=== PATIENT | male | born 1955 | race African-American/Black ===

== ENCOUNTER → 2019-10-10 09:50 | Outpatient (CLI) | payer BC, SELFPAY ==
--- NOTE | ~2019-10-10 | US_ITS ---
EXAMINATION: US soft tissue groin LT EXAM DATE: 10/10/2019 10:10 INDICATION: Left groin bulge. TECHNIQUE: Multiple grayscale and Doppler images of the left groin, inguinal region were obtained (by a technologist who performed the scan) and subsequently reviewed. There is no prior study for brittani ortiz. FINDINGS: Scanning in the area of concern demonstrates probable large inguinal hernia with another more focal t ubular structure demonstrating peristalsis, a loop of bowel. IMPRESSION: 1. Large right inguinal hernia containing fat, bowel. Reviewed, dictated and finalized at location B.
== END ==
PROVIDERS: PCP Physician Assistant; Visit Provider Physician Assistant
DX: R19.09 Other intra-abdominal and pelvic swelling, mass and lump (principal); K40.90 Unilateral inguinal hernia, without obstruction or gangrene, not specified as recurrent
CPT/HCPCS: 76882

== ENCOUNTER → 2020-04-12 09:35 | Outpatient (CLI) | payer OTHER, SELFPAY ==
--- NOTE | ~2020-04-12 | US_ITS ---
EXAMINATION: US scrotum doppler EXAM DATE: 04/12/2020 10:45 INDICATION: Left-sided scrotal mass. Left testicular pain. Bilateral groin pain. Left inguinal hernia repair. TECHNIQUE: Multiple grayscale and Doppler images of the testicles and scrotum were obtained bilateral ly. There is no prior study for comparison. FINDINGS: Right testicle measures 2.7 x 3.1 x 2.5 cm and is morphologically normal. Low resistance Doppler edgard w confirmed. The epididymis is unremarkable. There is small hydrocele, fluid surrounding the testicle . Scanning in images labeled right groin area of pain, lateral to the right testicle demonstrates ov al anechoic fluid collection measuring 8.1 x 4.0 x 8.4 cm. Left testicle measures 3.9 x 1.9 x 2.1 cm and is morphologically normal. Low resistance Doppler flow confirmed. The epididymis is unremarkable. Small to moderate-sized left hydrocele and varicocele. IMPRESSION: 1. Sonographically normal testicles. 2. Small to moderate bilateral hydroceles. 3. Small to moderate left varicocele. 4. Large nonspecific contained fluid in right groin at area of pain. Reviewed, dictated and finalized at location B. [employer]
== END ==
PROVIDERS: PCP Physician Assistant; Visit Provider Physician Assistant
DX: N43.3 Hydrocele, unspecified (principal); I86.1 Scrotal varices
CPT/HCPCS: 76870; 93976

== ENCOUNTER 2020-07-19 14:01 | Outpatient (CLI) | payer OTHER, MEDICARE, SELFPAY | END 2020-07-19 14:02 | disposition home or self-care (01) | LOC: ANHCOVIDVC 14:01 | PROVIDERS: PCP Internal Medicine | DX: Z23 Encounter for immunization (principal) | CPT/HCPCS: 0001A; 91300 ==

== ENCOUNTER 2020-08-09 14:04 | Outpatient (CLI) | payer OTHER, MEDICARE, SELFPAY | END 2020-08-09 14:05 | disposition home or self-care (01) | LOC: ANHCOVIDVC 14:04 | PROVIDERS: PCP Internal Medicine | DX: Z23 Encounter for immunization (principal) | CPT/HCPCS: 0002A; 91300 ==

== ENCOUNTER → 2021-11-11 12:55 | Outpatient (CLI) | payer OTHER, SELFPAY ==
--- NOTE | ~2021-11-11 | MR_ITS ---
EXAMINATION: MR brain/brain stem wo/w con DATE: 11/11/2021 14:07 INDICATION: Dizziness TECHNIQUE: Magnetic resonance imaging (MRI) of the brain and brainstem was performed without and with 18 cc MultiHance intravenous contrast. Sequences included sagittal and axial T1-weighted SE, axial d iffusion-weighted FS SE, axial T2*-weighted GRE, axial T2-weighted FLAIR Propeller, and axial T2-weig hted Propeller. Apparent diffusion coefficient (ADC) maps were created. COMPARISON: None. FINDINGS: Mild generalized atrophy. There are scattered mild periventricular and subcortical white ma tter changes, most likely related to small vessel ischemic disease (microangiopathy). No evidence for acute infarction or hemorrhage. No abnormal contrast enhancement. Structures of the posterior fossa including 7/8th cranial nerve complexes are within normal limits. Orbits are symmetric without discon jugate gaze. Minimal mucosal thickening right frontal sinus. IMPRESSION: 1. No acute intracranial abnormality. 2: Chronic age-related findings. Reviewed, dictated and finalized at location A.
[2021-11-11 13:43] LABS: Estimated Glomerular Filt Rate > 60
== END ==
PROVIDERS: Visit Provider Physician Assistant
DX: R42 Dizziness and giddiness (principal)
CPT/HCPCS: 70553; A9577

== ENCOUNTER → 2022-02-13 15:31 | Outpatient (CLI) | payer OTHER, SELFPAY ==
--- NOTE | ~2022-02-13 | XR_ITS ---
XR chest 2V DATE: 02/13/2022 15:54 INDICATION: Productive cough. Smoker. TECHNIQUE: 2 views COMPARISON: 06/17/2018 2 view chest FINDINGS: Heart size is within normal limits. No hilar or mediastinal enlargement. No pulmonary infil trate or consolidation, pleural effusion or pulmonary vascular congestion or pneumothorax. IMPRESSION: No active cardiopulmonary disease Reviewed, dictated and finalized at location A.
== END ==
PROVIDERS: PCP Physician Assistant; Visit Provider Physician Assistant
DX: R05.9 Cough, unspecified (principal)
CPT/HCPCS: 71046

== ENCOUNTER 2022-09-06 14:30 | Outpatient (RCR) | payer OTHER, SELFPAY ==
[2022-07-06 08:53] VITALS: BMI 27.3
[2022-07-06 08:54] VITALS: BMI 27.3
== END 2022-09-18 14:08 | disposition home or self-care (01) ==
LOC: ANHDMC 14:30
PROVIDERS: PCP Physician Assistant; Visit Provider Physician Assistant
DX: E11.59 Type 2 diabetes mellitus with other circulatory complications (principal); I15.2 Hypertension secondary to endocrine disorders; I48.0 Paroxysmal atrial fibrillation; K70.30 Alcoholic cirrhosis of liver without ascites; Z71.3 Dietary counseling and surveillance; Z71.89 Other specified counseling
CPT/HCPCS: 97802; G0108; G0109

== ENCOUNTER 2022-10-17 09:05 | Emergency (ER) | payer OTHER, SELFPAY ==
--- NOTE | 2022-10-17 09:14 | ED.URI ---
HPI - URI/Sore Throat General Chief Complaint: Upper Respiratory Infection Stated Complaint: skin irritation left chest, stuffy head and nose Time Seen by Provider: 10/17/22 09:20 Source: patient and RN notes reviewed Mode of arrival: ambulatory Limitations: no limitations History of Present Illness HPI Narrative: 67-year-old male presents with multiple concerns. He reports for more than a month he has had cough, nasal congestion, rhinorrhea. He has also had itchy rash on his chest, along with generalized itching. He reports his left breast is swollen and tender, about a month ago he had drainage from his nipple. He reports chills and sweats. He reports low-grade temperature. Reports he was seen by his doctor about 3 weeks ago and was given is Z-Bry without relief of symptoms. MD elicited complaint: cough, nasal congestion and other (Rash, swollen breath) Related Data Home Medications Medication Instructions Recorded Confirmed aspirin 81 mg tablet,delayed mg 10/17/22 release dapagliflozin propanediol 10 mg mg 10/17/22 tablet ([facility]) fluticasone propionate 50 intranasal 10/17/22 mcg/actuation nasal spray,suspension furosemide 20 mg tablet mg 10/17/22 metoprolol succinate 25 mg mg PO 10/17/22 tablet,extended release 24 hr montelukast 10 mg tablet mg 10/17/22 omeprazole 40 mg capsule,delayed mg 10/17/22 release spironolactone 50 mg tablet mg 10/17/22 Allergies Allergy/AdvReac Type Severity Reaction Status Date / Time guaifenesin Allergy Unknown Other Verified 10/17/22 09:16 phenylephrine Allergy Unknown Other Verified 10/17/22 09:16 Review of Systems Review of Systems: CONSTITUTIONAL: Reports malaise, chills, sweats, low-grade fever. EYES: Denies visual changes, redness, or discharge. ENT: Reports rhinorrhea, congestion, sinus pain. Denies otalgia and sore throat. CARDIOVASCULAR: Denies chest pain, palpitations, or edema. RESPIRATORY: Reports productive cough. Denies dyspnea. GASTROINTESTINAL: Denies abdominal pain, nausea, vomiting, diarrhea SKIN: Reports rash on his left chest. Reports left breast swelling, warmth, tenderness MUSCULOSKELETAL: Reports myalgia. NEUROLOGIC: Denies headache. All systems reviewed & are unremarkable except as noted in HPI and below PMFSH Family History Family History (System 05/16/21 @ 15:33 by Christophe Nicole) Sibling Asthma Social History Social History (System 05/16/21 @ 15:33 by Christophe Nicole) Smoking status: Current every day smoker Alcohol intake: current Spiritual care concerns: No Comments At time of signature, agree with nursing past medical, surgical, social and family history. There is no relevant family history pertinent to the presenting complaint Exam Narrative: GENERAL: Nontoxic-appearing, well-nourished, and in no acute distress. HEAD: Normocephalic EYES: PERRLA, conjunctivae clear ENT: Nares clear, turbinates edematous and erythematous, green discharge. Mucous membranes moist. TM pearly jeffries with dull light reflex bilaterally; no tragal tenderness. Oropharynx not erythematous without lesions. Tonsils not enlarged and without exudate, no drooling, no hoarseness, no trismus, uvula midline. NECK: Supple. No lymphadenopathy CHEST: Clear to auscultation, breath sounds equal. No wheezing, rhonchi, rales, or stridor. No respiratory distress, speaks in full sentences. Cough noted HEART: Regular rate and rhythm. No murmur heard. SKIN: Warm, dry. Proximally he 5 cm in diameter patch of mildly erythematous small papules noted above the left breast. Left breast tissue under the nipple is warm, indurated and tender without erythema, no drainage from the nipples noted NEURO: Alert and oriented x3. PSYCH: Normal mood and affect Course Course Emergency Course: Patient was advised that if the breast swelling and tenderness does not completely resolve with antibiotic he needs to see his primary care doctor for further evaluation. P
[2022-10-17 09:19] VITALS: BP 149/113; PULSE 64; RESP 16; TEMP 37.2; O2SAT 98
== END 2022-10-17 09:44 | disposition home or self-care (01) ==
PROVIDERS: Emergency Provider Nurse Practitioner; PCP Physician Assistant
DX: J32.9 Chronic sinusitis, unspecified (principal); J40 Bronchitis, not specified as acute or chronic; L25.9 Unspecified contact dermatitis, unspecified cause; R22.2 Localized swelling, mass and lump, trunk; N63.0 Unspecified lump in unspecified breast; F17.200 Nicotine dependence, unspecified, uncomplicated; Z79.82 Long term (current) use of aspirin; I48.91 Unspecified atrial fibrillation; I10 Essential (primary) hypertension; K74.60 Unspecified cirrhosis of liver; K21.9 Gastro-esophageal reflux disease without esophagitis; E11.9 Type 2 diabetes mellitus without complications
CPT/HCPCS: 99213; G0463

== ENCOUNTER 2022-10-28 10:26 | Emergency (ER) | payer OTHER, SELFPAY ==
--- NOTE | ~2022-10-28 | CT_ITS ---
EXAMINATION: CT brain wo con DATE: 10/28/2022 11:24 INDICATION: Fall. Minor head injury. TECHNIQUE: Computed tomography (CT) of the head was performed without intravenous contrast. The mA wa s adjusted according to patient size. Iterative reconstruction technique was employed. Exam dose: 60 5.33 mGy-cm total exam DLP. COMPARISON: 11/11/2021 MR brain/brainstem FINDINGS: Intracranial calcified atherosclerosis of the internal carotid arteries. There is nonspecif ic diminished attenuation cerebral white matter, likely due to chronic small vessel ischemic changes. No intracranial mass lesion or hemorrhage or cerebrovascular accident is detected. Mild bilateral bas al ganglia calcification, not likely of clinical significance. No subdural or epidural hematoma is detected. There is a plate and screws along the floor of the left orbit. Fixation devices are noted along the a nterior aspect of the left zygomatic arch. No recent skull fracture or bone destruction is noted. There is patchy soft tissue thickening of the ethmoid air cells and to a minimal extent the left fron eze sinus but the paranasal sinuses and mastoid air cells are otherwise unremarkable. IMPRESSION: Cerebral atherosclerosis and chronic small vessel ischemic changes of cerebral white mat ter Postoperative change of the left facial bones No skull fracture or acute intracranial finding Reviewed, dictated and finalized at Location A. Reviewed, dictated and finalized at location A. IMPRESSION: Cerebral atherosclerosis and chronic small vessel ischemic changes of cerebral white matter Postoperative change of the left facial bones No skull fracture or acute intracranial finding
--- NOTE | ~2022-10-28 | XR_ITS ---
XR shoulder LT min 2V DATE: 10/28/2022 11:21 INDICATION: Fell off of ladder. Left shoulder pain. TECHNIQUE: 3 views COMPARISON: None FINDINGS: There is a minimally anteriorly displaced linear oblique fracture through the very proximal shaft of the left humerus. Normal alignment at the acromioclavicular and glenohumeral joints. No other fracture or dislocation i s evident. IMPRESSION: Linear oblique minimally displaced fracture of the proximal humeral shaft Reviewed, dictated and finalized at location A.
[2022-10-28 10:23] VITALS: BP 99/60; PULSE 75; RESP 16; TEMP 36.9; O2SAT 100
--- NOTE | 2022-10-28 12:06 | ED.GENADULT ---
HPI - General Adult General Chief complaint: Fall Stated complaint: 5FT FALL OFF LADDER, L SHOULDER PAIN History of Present Illness HPI narrative: Patient is a 67-year-old male who presents ER status post fall. He is on a 5 foot ladder cleaning out his gutters when he lost his balance falling onto the left side. Landed on his shoulder. He did strike his head but did not lose consciousness. He is not on blood thinning medication. He had sudden onset pain to his shoulder. He is unable to move it without pain. No numbness or tingling to the extremity. He was able to walk afterwards. Related Data Home Medications Medication Instructions Recorded Confirmed amoxicillin 875 mg-potassium tablet 10/28/22 10/28/22 clavulanate 125 mg tablet aspirin 81 mg tablet,delayed mg 10/28/22 release blood sugar diagnostic (Contour 10/28/22 10/28/22 Next Test Strips) dapagliflozin propanediol 10 mg mg 10/28/22 tablet (Farxiga) eplerenone 50 mg tablet mg 10/28/22 fluticasone propionate 50 intranasal 10/28/22 mcg/actuation nasal spray,suspension furosemide 20 mg tablet mg 10/28/22 lancets (Microlet Lancet) 10/28/22 10/28/22 metoprolol succinate 25 mg mg PO 10/28/22 tablet,extended release 24 hr montelukast 10 mg tablet mg 10/28/22 omeprazole 40 mg capsule,delayed mg 10/28/22 release spironolactone 50 mg tablet mg 10/28/22 Allergies Allergy/AdvReac Type Severity Reaction Status Date / Time guaifenesin Allergy Unknown Verified 10/28/22 11:25 phenylephrine Allergy Unknown Verified 10/28/22 11:25 Review of Systems Review of Systems: All systems reviewed & are unremarkable except as noted in HPI and below Musculoskeletal: Musculoskeletal: Reports arthralgias, Reports joint swelling and Denies muscle cramps Integumentary/Breasts: Skin/Breast: Denies erythema and Denies rash Neurologic: Denies syncope, Denies headache(s), Denies focal weakness and Denies numbness PMFSH Past Medical History Medical History (Updated 10/28/22 @ 12:16 by Berto De La Vega MD) Diabetes Heart failure Hypertension Surgical History Surgical History (Updated 10/28/22 @ 12:16 by Berto De La Vega MD) History of facial surgery Exam Narrative: GENERAL: Well-appearing, well-nourished, and in no acute distress. HEAD: Normocephalic, atraumatic. ENT: Mucous membranes moist. NECK: Supple. No cervical tenderness. CHEST: Clear to auscultation. No respiratory distress. HEART: Regular rate and rhythm. Normal peripheral pulses. EXTREMITIES: Left upper extremity with limited mobility due to pain and swelling left shoulder. No tenderness at the wrist or elbow. Sensation intact. Normal right upper extremity. SKIN: Warm, dry, no rash. NEURO: Alert and oriented x3. PSYCH: Normal mood and affect. Course Course Emergency Course: Patient resting comfortably. Discussed case with Dr. Chen. Recommends shoulder immobilizer. Patient educated on treatment plan and verbalized understanding. Vital Signs Vital signs: Vital Signs Temperature 98.4 F 10/28/22 10:23 Pulse Rate 75 10/28/22 10:23 Respiratory Rate 16 10/28/22 10:23 Blood Pressure 99/60 L 10/28/22 10:23 Pulse Oximetry 100 10/28/22 10:23 Temperature 98.4 F 10/28/22 10:23 Pulse Rate 75 10/28/22 10:23 Respiratory Rate 16 10/28/22 10:23 Blood Pressure 99/60 L 10/28/22 10:23 Pulse Oximetry 100 10/28/22 10:23 Medical Decision Making Vital Signs Vital Signs: Vital Signs Temperature 98.4 F 10/28/22 10:23 Pulse Rate 75 10/28/22 10:23 Respiratory Rate 16 10/28/22 10:23 Blood Pressure 99/60 L 10/28/22 10:23 Pulse Oximetry 100 10/28/22 10:23 Temperature 98.4 F 10/28/22 10:23 Pulse Rate 75 10/28/22 10:23 Respiratory Rate 16 10/28/22 10:23 Blood Pressure 99/60 L 10/28/22 10:23 Pulse Oximetry 100 10/28/22 10:23 Imaging Data Radiologist's impression: ITS Impressions
[2022-10-28] MEDS: HYDROcodone/acetaminophen (*CRX) 5-325 MG TABLET 1 TAB PO (12:32)
--- NOTE | 2022-10-28 12:48 | PC.NURSE ---
order clarified left shoulder immobilizer on.
[2022-10-28 12:54] VITALS: BP 152/84; PULSE 80; RESP 16; O2SAT 98
== END 2022-10-28 13:00 | disposition home or self-care (01) ==
PROVIDERS: Emergency Provider Emergency Medicine; PCP Physician Assistant
DX: S42.202A Unspecified fracture of upper end of left humerus, initial encounter for closed fracture (principal); E11.9 Type 2 diabetes mellitus without complications; I11.0 Hypertensive heart disease with heart failure; I50.9 Heart failure, unspecified; Z79.82 Long term (current) use of aspirin; Z79.899 Other long term (current) drug therapy; W11.XXXA Fall on and from ladder, initial encounter
CPT/HCPCS: 70450; 73030; 99284; A4565; A9270

== ENCOUNTER 2022-11-13 15:14 | Emergency (ER) | payer OTHER, SELFPAY ==
[2022-11-13 15:28] VITALS: BP 115/58; PULSE 82; RESP 18; TEMP 37.3; O2SAT 100
--- NOTE | 2022-11-13 15:41 | ED.GENADULT ---
HPI - General Adult General Chief complaint: Extremity Problem,Nontraumatic Stated complaint: legs swollen Time Seen by Provider: 11/13/22 15:41 Source: patient Mode of arrival: ambulatory Limitations: no limitations History of Present Illness HPI narrative: 67-year-old male presents with complaint of lower leg swelling since October 31. Patient reports that he has informed his liver specialist regarding the swelling and his Lasix was increased to 40 mg. He had labs done when swelling for started and they were normal. Reports that he is supposed to get repeat labs after he has been on 40 mg Lasix but has not gotten them yet. Patient called his primary care physician to evaluate this swelling and was told to see his nurse paralegal. [employer] stated that since his liver specialist prescribed Lasix they should be the physician that sees him. Patient reports that bilateral leg swelling is worsening. He now has sores developing to lower legs. Denies chest pain and shortness of breath. Patient has history of AFib but states I know I am not in afib . All systems reviewed and negative except as noted above. Related Data Home Medications Medication Instructions Recorded Confirmed fluticasone propionate 50 1 spray intranasal DAILY 10/17/22 10/31/22 mcg/actuation nasal spray,suspension aspirin 81 mg tablet,delayed mg 10/28/22 10/31/22 release blood sugar diagnostic (Contour 10/28/22 10/31/22 Next Test Strips) dapagliflozin propanediol 10 mg mg 10/28/22 10/31/22 tablet (Farxiga) furosemide 20 mg tablet mg 10/28/22 10/31/22 lancets (Microlet Lancet) 10/28/22 10/31/22 metoprolol succinate 25 mg mg PO 10/28/22 10/31/22 tablet,extended release 24 hr montelukast 10 mg tablet mg 10/28/22 10/31/22 omeprazole 40 mg capsule,delayed mg 10/28/22 10/31/22 release spironolactone 50 mg tablet mg 10/28/22 10/31/22 Allergies Allergy/AdvReac Type Severity Reaction Status Date / Time guaifenesin Allergy Unknown Other Verified 11/13/22 15:20 phenylephrine Allergy Unknown Other Verified 11/13/22 15:20 Review of Systems Review of Systems: CONSTITUTIONAL: Denies fever, chills, or sweats. EYES: Denies visual changes, redness, or discharge. ENT: Denies rhinorrhea, congestion, sore throat, or otalgia. CARDIOVASCULAR: Denies chest pain, palpitations . Reports lower leg swelling. RESPIRATORY: Denies cough or dyspnea. GASTROINTESTINAL: Denies abdominal pain, nausea, vomiting, or diarrhea. GENITOURINARY: Denies dysuria or hematuria. SKIN: Denies rash or itching. MUSCULOSKELETAL: Denies back pain, joint pain, or myalgia. NEUROLOGIC: Denies headache, numbness, or weakness. PSYCHIATRIC: Denies anxiety or depression. All other systems reviewed are negative, except as documented in HPI. [facility] Past Medical History Medical History (Updated 11/13/22 @ 16:02 by Seble Walker NP) Diabetes Fracture of proximal end of left humerus Heart failure Hypertension Surgical History Surgical History (Updated 11/01/22 @ 11:15 by Jenniffer Patel CMA) History of facial surgery History of hip replacement (~2011) Family History Family History (Updated 11/01/22 @ 11:16 by Jenniffer Patel CMA) Sibling Asthma Kidney disorder Unknown Asthma Hypertension Diabetes mellitus Social History Social History (Updated 11/01/22 @ 11:16 by Jenniffer Patel CMA) Smoking status: Former smoker Smoking end date: 05/17/22 Alcohol intake: current Substance use: never Occupation/Education: retired Gender identity (if verbalized by the patient): Male Spiritual care concerns: No Comments At time of signature, agree with nursing past medical, surgical, social and family history. There is no relevant family history pertinent to the presenting complaint. Exam Narrative: GENERAL: This is a well-nourished, well-developed patient, in no apparent distress. HEAD: normocephalic, atraumatic. EYES: PERRL. S
--- NOTE | 2022-11-13 15:56 | ECG_ITS ---
Measurements Intervals [place] Rate: 83 P: 49 [place]: 171 QRS: 1 QRSD: 93 T: 30 QT: 405 QTc: 477 Interpretive Statements SINUS RHYTHM POSSIBLE LEFT ATRIAL ENLARGEMENT [-0.1mV P WAVE IN V1/V2] NO PREVIOUS ECG AVAILABLE FOR COMPARISON Electronically Signed On 11-14-2022 14:02:47 CDT by Laquita Calderon M.D.
== END 2022-11-13 16:07 | disposition home or self-care (01) ==
PROVIDERS: Emergency Provider Nurse Practitioner Family; PCP Physician Assistant
DX: R22.43 Localized swelling, mass and lump, lower limb, bilateral (principal); Z87.891 Personal history of nicotine dependence; E11.9 Type 2 diabetes mellitus without complications; I11.0 Hypertensive heart disease with heart failure; I50.9 Heart failure, unspecified; I48.91 Unspecified atrial fibrillation; Z79.82 Long term (current) use of aspirin
CPT/HCPCS: 93005; 99213; G0463

== ENCOUNTER 2022-11-30 14:30 | Outpatient (RCR) | payer OTHER, SELFPAY ==
[2022-09-28 13:46] VITALS: BMI 26.8
[2022-09-28 13:47] VITALS: BMI 26.8
== END 2022-12-27 23:59 | disposition home or self-care (01) ==
LOC: ANHDMC 14:30
PROVIDERS: PCP Physician Assistant; Visit Provider Physician Assistant
DX: E11.59 Type 2 diabetes mellitus with other circulatory complications (principal); I15.2 Hypertension secondary to endocrine disorders; I48.0 Paroxysmal atrial fibrillation; K70.30 Alcoholic cirrhosis of liver without ascites; Z71.3 Dietary counseling and surveillance; Z71.89 Other specified counseling
CPT/HCPCS: 97803; G0109

== ENCOUNTER 2023-01-24 09:30 | Outpatient (RCR) | payer OTHER, SELFPAY ==
[2023-01-02 09:45] VITALS: BMI 25.7
[2023-01-02 09:52] VITALS: BMI 25.7
[2023-01-24 09:47] VITALS: BMI 27.0
[2023-01-24 11:13] VITALS: BMI 27.0
== END 2023-04-02 09:13 | disposition home or self-care (01) ==
LOC: ANHDMC 09:30
PROVIDERS: PCP Physician Assistant; Visit Provider Physician Assistant
DX: E11.59 Type 2 diabetes mellitus with other circulatory complications (principal); I15.2 Hypertension secondary to endocrine disorders; I48.0 Paroxysmal atrial fibrillation; K70.30 Alcoholic cirrhosis of liver without ascites; Z71.3 Dietary counseling and surveillance
CPT/HCPCS: 97803

== ENCOUNTER 2023-03-15 10:15 | Outpatient (RCR) | payer OTHER, SELFPAY ==
--- NOTE | 2023-02-14 15:06 | OPREHPOC ---
Outpatient Therapy Plan of Care This is a Multidisciplinary Plan of Care that may contain components documented by all disciplines (PT, OT, and ST.) PT Problem 1 PT Problem #1 Knowledge Deficit PT Goal 1 Goal 1. Patient will perform independent HEP Target Visit 9 PT Problem 2 PT Problem #2 Pain PT Goal 1 Goal 1. Shoulder pain no higher than 1/10 with all activities Target Visit 9 PT Problem 3 PT Problem #3 Impaired Strength PT Goal 1 Goal 1. Left shoulder strength to 4+/5 in all planes to return to full function Target Visit 9 PT Problem 4 PT Problem #4 Impaired Range of Motion PT Goal 1 Goal 1. Improve left shoulder flexion to at least 140 degrees actively to reach into cabinets
--- NOTE | 2023-02-14 15:06 | PTOPEVAL1 ---
Assessment and note entered by Rosa Song DPT Evaluation Information Assessment Status Evaluation Subjective Information Pt had a L humeral fracture in September or October after falling off a ladder. Pt did not have surgery, was in a sling for 6 weeks. Highest pain 5/10 and lowest 2/10. Pt is R handed. Pt reports he still feels weak in his arm, difficulty opening jars and doing things like that. Pt is retired and goes to [employer]. Drives independently. Able to dress independently and cooks and cleans. No recent yard work due to his arm. Returns to MD is not scheduled. States he did not have home health therapy. Patient goal: be able to use it like I used to Reported Pain Level Pain Score 2: Self Report Assessment PT Clinical Summary The patient is presenting to skilled therapy following a humeral fracture. He presents with decreased active motion in all planes, decreased strength in all planes, and pain with activity. He will benefit from therapy to address his impairments in order to return to prior level of function. Plan of Care Interventions Electrical Stimulation,Hot Pack/Cold Pack,Manual Therapy,Neuro Re-education,Patient/Caregiver Education,Therapeutic Activities,Therapeutic Exercise PT Services Indicated Yes Treatment Frequency and 2 times a week for 8 visits Duration These treatments will address the objective and functional deficits as defined above. The patient will be advanced safely and appropriately in order for the patient to progress towards his/her prior level of function. Additional exercises will be introduced and as well as a comprehensive home exercise program upon discharge, if needed, ?to ensure carryover of functional gains achieved in the clinic. This treatment plan has been reviewed and agreement upon by the patient.
--- NOTE | 2023-02-16 11:23 | PCPTNOTE ---
Pt. was scheduled to be seen in the office today but patient did not show. Called and was told pt. had another doctors appointment at the same time.
--- NOTE | 2023-03-15 10:49 | OPREHPOC ---
Outpatient Therapy Plan of Care This is a Multidisciplinary Plan of Care that may contain components documented by all disciplines (PT, OT, and ST.) PT Problem 1 PT Problem #1 Knowledge Deficit PT Goal 1 Goal 1. Patient will perform independent HEP Target Visit 9 Progress Met PT Problem 2 PT Problem #2 Pain PT Goal 1 Goal 1. Shoulder pain no higher than 1/10 with all activities Target Visit 9 Progress Met PT Problem 3 PT Problem #3 Impaired Strength PT Goal 1 Goal 1. Left shoulder strength to 4+/5 in all planes to return to full function Target Visit 9 Progress Partially Met PT Problem 4 PT Problem #4 Impaired Range of Motion PT Goal 1 Goal 1. Improve left shoulder flexion to at least 140 degrees actively to reach into cabinets Progress Partially Met
--- NOTE | 2023-03-15 10:49 | PTOPDC ---
Assessment and note entered by Rosa Song DPT Evaluation Information Assessment Status Discharge Subjective Information Highest shoulder pain in last week is still minor, just an ache. Lowest pain 0/10. Pt reports he is doing activities again at home and dressing independently. Can reach into a cabinet. Pt states he would like to discharge at this time. Reported Pain Level Pain Score 0: Self Report Assessment PT Clinical Summary The patient has made progess in active range of motion and reports decreased pain as well as improved function at home like to reach into a cabinet. He displays mild strength improvements but continues to lack strength compared to his R UE. More therapy was recommended to address strength but patient is choosing to self discharge at this time and will follow up with MD and/or PT as needed. He has been educated in a thorough HEP to address strength independently. Plan of Care PT Services Indicated No
== END 2023-03-15 13:49 | disposition home or self-care (01) ==
LOC: ANHPT 10:15
PROVIDERS: PCP Physician Assistant; Visit Provider Orthopaedic Surgery
DX: S42.202D Unspecified fracture of upper end of left humerus, subsequent encounter for fracture with routine healing (principal); R29.898 Other symptoms and signs involving the musculoskeletal system
CPT/HCPCS: 97110; 97112; 97140; 97161; 97530

== ENCOUNTER 2023-10-09 10:00 | Outpatient (CLI) | payer OTHER, SELFPAY ==
--- NOTE | ~2023-10-09 | XR_ITS ---
AP and lateral views of the left hip Clinical history: Pain Findings: No acute fracture or dislocation is seen. Osseous alignment is anatomic. There is advanced left hip joint degenerative change with superior joint space narrowing, reactive sclerosis, and subch ondral cystic change in the femoral head. Possible minimal remodeling of the femoral head.. Soft tiss ues are unremarkable. Impression: Advanced left hip joint osteoarthritis, as detailed above. Reviewed, dictated and finalized at location M. Impression: Advanced left hip joint osteoarthritis, as detailed above.
== END 2023-10-09 10:01 ==
LOC: MICIMG 10:01
PROVIDERS: PCP Physician Assistant; Visit Provider Physician Assistant
DX: M16.12 Unilateral primary osteoarthritis, left hip (principal); I85.10 Secondary esophageal varices without bleeding
CPT/HCPCS: 73502

== ENCOUNTER 2023-11-08 09:11 | Outpatient (CLI) | payer OTHER, SELFPAY ==
--- NOTE | ~2023-11-08 | MMUS_ITS ---
EXAMINATION: MM diagnostic otilio LT w good, US breast LT limited HISTORY: Palpable left breast abnormality. Gynecomastia. Patient takes spironolactone. TECHNIQUE: Additional 3-D tomosynthesis images of the left breast were performed and synthetic 2-D im ages were generated. Comparison right MLO view performed. CAD analysis was submitted and interpreted. High resolution Limited left breast ultrasound was performed. COMPARISON: None BREAST PARENCHYMAL COMPOSITION: Dense: The breasts are heterogeneously dense, which may obscure small masses FINDINGS: MAMMOGRAPHIC FINDINGS: There is bilateral asymmetric gynecomastia, left greater than right. No discrete mass or architectura l distortion. There are no suspicious calcifications. ULTRASOUND: Limited left breast ultrasound: There is a prominent subareolar breast bud, consistent with gynecomas tia. No discrete mass identified. IMPRESSION: 1. No evidence for malignancy in the left breast. Benign gynecomastia. 2. Recommend follow-up clinical management for gynecomastia. BI-RADS Category 1: Negative Reviewed, dictated and finalized at location B. IMPRESSION: 1. No evidence for malignancy in the left breast. Benign gynecomastia. 2. Recommend follow-up clinical management for gynecomastia. BI-RADS Category 1: Negative
== END 2023-11-08 09:12 ==
LOC: MICIMG 09:12
PROVIDERS: PCP Physician Assistant; Visit Provider Physician Assistant
DX: N63.23 Unspecified lump in the left breast, lower outer quadrant (principal); N62 Hypertrophy of breast
CPT/HCPCS: 76642; 77061; 77065; G0279

== ENCOUNTER 2024-11-17 18:16 | Emergency (ER) | payer MEDICARE, SELFPAY ==
--- NOTE | ~2024-11-17 | CT_ITS ---
History: Fall PROCEDURE: CT head without contrast. COMPARISON: 10/28/2022 TECHNIQUE: Axial imaging of the head performed from the skull base to the vertex without IV contrast. Sagittal a nd coronal reformations obtained. DLP: 681 mGy-cm FINDINGS: Acute fracture is identified involving the right posterior temporal parietal bone, at the level of th e right mastoid air cells with pneumocephalus extending centrally along the right temporal bone. In addition, is a left frontal subdural hematoma measuring 7.4 mm in greatest caliber along the left frontal lobe (axial series, image 44) In addition is a bifrontal subarachnoid hemorrhage without midline shift. The ventricles are enlarged, without intraventricular hemorrhage. The dilatation of the ventricles is proportional to the degree of sulcal prominence, not uncommon in the senescent brain. Decreased attenuation is identified within the periventricular white matter, likely secondary to micr ovascular ischemic disease. Impression: Acute nondisplaced fracture involving the right temporal parietal bone at the level of the right mast oid air cells with pneumocephalus extending centrally along the undersurface of the apex of the laquita us portion of the right temporal bone. Left frontal subdural hematoma with a bifrontal subarachnoid hemorrhage. No midline shift is detected. These findings were discussed with Latonya Peres at 7 PM on 11/17/2024 Reviewed, dictated and finalized at location A. Impression: Acute nondisplaced fracture involving the right temporal parietal bone at the l evel of the right mastoid air cells with pneumocephalus extending centrally yang ng the undersurface of the apex of the petrous portion of the right temporal maik ne. Left frontal subdural hematoma with a bifrontal subarachnoid hemorrhage. No midline shift is detected. These findings were discussed with Latonya Peres at 7 PM on 11/17/2024
--- NOTE | ~2024-11-17 | CT_ITS ---
History: Fall PROCEDURE: CT cervical spine without intravenous contrast. COMPARISON: None TECHNIQUE: Multiple contiguous axial images of the cervical spine were performed without the administration of i ntravenous contrast. DLP: 184 mGy-cm FINDINGS: Straightening and slight reversal of the normal curvature of the cervical spine is identified, likely muscular in origin. Significant degenerative disease is identified, with osteophyte formation (some bridging), disc space narrowing, endplate changes and vacuum phenomena. Subchondral cyst formation is also noted, as is ossification of the posterior longitudinal ligament. Significant facet arthropathy is also present along with diffuse bony demineralization. No acute displaced fractures are present. The bilateral lung apices are unremarkable. No soft tissue abnormality is appreciated. The airway is patent.. Impression: Severe degenerative disease, without acute fracture. Reviewed, dictated and finalized at location A. Impression: Severe degenerative disease, without acute fracture.
--- NOTE | ~2024-11-17 | XR_ITS ---
CHEST RADIOGRAPH CLINICAL HISTORY: fall . COMPARISON: 02/13/2022 TECHNIQUE: Single portable view of the chest. FINDINGS The cardiomediastinal silhouette is unremarkable. Coarse interstitial lung markings detected bilaterally, likely chronic. The remainder of the lungs are clear. IMPRESSION: Coarse interstitial lung markings, without focal infiltrate or effusion. Reviewed, dictated and finalized at location A.
[2024-11-17 18:04] VITALS: BP 117/61; PULSE 85; RESP 14; TEMP 36.6; O2SAT 97
--- NOTE | 2024-11-17 18:49 | PC.NURSE ---
Pt came out of room asking for a nurse to look at her . States concern d/t seeing blood coming from pt R ear. This RN cleaned pt ear with gauze and normal saline. EDP Latonya made aware. New orders placed for imaging.
--- NOTE | 2024-11-17 19:16 | ED_ITS ---
HPI - Head Injury General Chief complaint: Head Injury <Latonya Peres PA-C - Last Filed: 11/19/24 04:07> Stated complaint: fall, head injury <Latonya Peres PA-C - Last Filed: 11/19/24 04:07> Time Seen by Provider: 11/17/24 18:32 <Latonya Peres PA-C - Last Filed: 11/19/24 04:07> History of Present Illness HPI Narrative: 69-year-old male with history of hypertension, diabetes, heart failure presents to emergency department with at bedside for a ground level fall that occurred prior to arrival. Patient does not recall events surrounding the fall. Unknown LOC. He was out shopping at the [employer] store, fell and was transferred to the ED via EMS. Patient is reporting a headache and bleeding out of his right ear canal. He denies vision changes, focal numbness or weakness, use of anticoagulants, chest pain or shortness of breath, other injuries or pain. C-collar is in place. Tdap is up to date within the past 5 years. Pt is not anticoagulated but does take a daily baby aspirin. <Latonya Peres PA-C - Last Filed: 11/19/24 04:07> Related Data Home medications: Home Medications ?Medication ?Instructions ?Recorded ?Confirmed ?Last Taken ?Type fluticasone propionate 50 1 spray intranasal DAILY 10/17/22 12/26/22 Unknown History mcg/actuation nasal spray,suspension aspirin 81 mg tablet,delayed mg 10/28/22 12/26/22 Unknown History release blood sugar diagnostic (Contour 10/28/22 12/26/22 Unknown History Next Test Strips) dapagliflozin propanediol 10 mg mg 10/28/22 12/26/22 Unknown History tablet (Farxiga) furosemide 20 mg tablet mg 10/28/22 12/26/22 Unknown History lancets (Microlet Lancet) 10/28/22 12/26/22 Unknown History metoprolol succinate 25 mg mg PO 10/28/22 12/26/22 Unknown History tablet,extended release 24 hr montelukast 10 mg tablet mg 10/28/22 12/26/22 Unknown History omeprazole 40 mg capsule,delayed mg 10/28/22 12/26/22 Unknown History release spironolactone 50 mg tablet mg 10/28/22 12/26/22 Unknown History <Latonya Peres PA-C - Last Filed: 11/19/24 04:07> Allergies/Adverse reactions: Allergies Allergy/AdvReac Type Severity Reaction Status Date / Time guaifenesin Allergy Unknown Other Verified 12/26/22 13:10 phenylephrine Allergy Unknown Other Verified 12/26/22 13:10 <Latonya Peres PA-C - Last Filed: 11/19/24 04:07> Review of Systems 2 Review of Systems: All systems reviewed & are unremarkable except as noted in HPI and below <Latonya Peres PA-C - Last Filed: 11/19/24 04:07> PMFSH Past Medical History Medical History: Medical History Upper extremity weakness Muscular deconditioning Fracture of proximal end of left humerus Heart failure Hypertension Diabetes <Latonya Peres PA-C - Last Filed: 11/19/24 04:07> Surgical History Surgical History: Surgical History History of hip replacement (~2011) History of facial surgery <Latonya Peres PA-C - Last Filed: 11/19/24 04:07> Family History Family History: Family History Sibling Asthma Kidney disorder Unknown Asthma Hypertension Diabetes mellitus <Latonya Peres PA-C - Last Filed: 11/19/24 04:07> Social History Social History: Social History Smoking status: Former smoker Smoking end date: 05/17/22 Alcohol intake: current Substance use: never Occupation/Education: retired Gender identity (if verbalized by the patient): Male Spiritual care concerns: No <Latonya Peres PA-C - Last Filed: 11/19/24 04:07> Exam 2 Narrative: GENERAL: Well-appearing, well-nourished, and in no acute distress. HEAD: Normocephalic. Mild bleeding to the posterior scalp with hematoma, no visible large laceration EYES: PERRLA, EOMI. ENT: Nares clear, no rhinorrhea or epistaxis. Mucous membranes moist. Bleeding out of the right ear canal NECK: C-collar in place BACK: No midline thoracolumbar spinous tenderness, crepitus, step-offs or deformities CHEST: Clear to auscultation. No respiratory distress. HEART: Regular rate and rhythm. No murmur heard. Normal peripheral pulses. ABDOMEN: Soft, nontender, nondistended, normal active bowel sounds. EXTREMITIES: Normal range of motion. No edema. SKIN: Warm, dry, no rash. NEURO: No focal deficits. Alert and oriented x4. Cranial nerves 2-12 intact. Strength 5/5 in BUE and BLE. Sensation intact throughout <Latonya Peres PA-C - Last Filed: 11/19/24 04:07> Course MEDICAL OFFICE TECHNOLOGY INSTRUCTOR/PA Physician Supervision This visit was performed by both a physician and an APC. I performed all aspects of the MDM as documented. <Berto De La Vega MD - Last Filed: 11/17/24 22:00> Vital Signs Vital signs: Vital Signs Temperature 97.9 F 11/17/24 18:04 Pulse Rate 85 11/17/24 18:04 Respiratory Rate 14 11/17/24 18:04 Blood Pressure 117/61 11/17/24 18:04 Pulse Oximetry 97 11/17/24 18:04 Oxygen Delivery Room Air 11/17/24 18:04 Temperature 97.9 F 11/17/24 18:04 Pulse Rate 85 11/17/24 18:04 Respiratory Rate 14 11/17/24 18:04 Blood Pressure 117/61 11/17/24 18:04 Pulse Oximetry 97 11/17/24 18:04 Oxygen Delivery Room Air 11/17/24 18:04 <Latonya Peres PA-C - Last Filed: 11/19/24 04:07> Vital Signs Temperature 97.9 F 11/17/24 18:04 Pulse Rate 85 11/17/24 18:04 Respiratory Rate 14 11/17/24 18:04 Blood Pressure 117/61 11/17/24 18:04 Pulse Oximetry 97 11/17/24 18:04 Oxygen Delivery Room Air 11/17/24 18:04 Temperature 97.9 F 11/17/24 18:04 Pulse Rate 85 11/17/24 18:04 Respiratory Rate 14 11/17/24 18:04 Blood Pressure 117/61 11/17/24 18:04 Pulse Oximetry 97 11/17/24 18:04 Oxygen Delivery Room Air 11/17/24 18:04 <Berto De La Vega MD - Last Filed: 11/17/24 22:00> MDM - Head Injury MDM Narrative Medical decision making narrative: 69-year-old male presents to the emergency department for a ground level fall that occurred prior to arrival. Patient does not recall the events surrounding the fall. He presents via EMS. Positive head injury, unknown LOC. He is not anticoagulated. Presenting with bleeding to the right ear canal and posterior scalp with large hematoma. No focal neurologic deficits however patient does seem more confused compared to his baseline per his . Triage vitals are stable CT brain Impression: Acute nondisplaced fracture involving the right temporal parietal bone at the level of the right mastoid air cells with pneumocephalus extending centrally along the undersurface of the apex of the petrous portion of the right temporal bone. Left frontal subdural hematoma with a bifrontal subarachnoid hemorrhage. No midline shift is detected. CT cervical spine Impression: Severe degenerative disease, without acute fracture. Patient and at bedside updated on results. Requesting transfer to [facility] or patient receives his care. Discussed case with [facility] ER physician, Dr. Cespedes, who accepts patient for transfer. Recommends mannitol if patient acutely decompensates. 2 large bore IVs placed by nursing staff. Pt was also given 2g ceftriaxone due to concern for open temporal/parietal fx with pneumocephalus and active bloody otorrhea. Patient had no neurologic changes or mental status changes in our ED. <Latonya Peres PA-C - Last Filed: 11/19/24 04:07> Lab Data Result diagrams: 11/17/24 19:48 11/17/24 19:48 <Latonya Peres PA-C - Last Filed: 11/19/24 04:07> Labs: Lab Results 11/17/24 Range/Units 19:48 WBC 7.2 (4.5-10.0) K/mm3 RBC 3.56 L (4.6-6.20) M/mm3 Hgb 10.4 L (14.0-18.0) g/dL Hct 32.7 L (42.0-52.0) % MCV 91.9 (80-100) fl MCH 29.2 (26-34) pg MCHC 31.8 L (32-36) g/dl RDW 16.1 H (11.5-14.5) % Plt Count 199 (150-375) k/mm3 MPV 9.7 (7.4-10.4) fl Immature Gran % (Auto) 0.6 H (0-0.5) % Neut % (Auto) 67.4 (45.5-73.1) % Lymph % (Auto) 15.9 L (18.3-44.2) % Cuming % (Auto) 12.2 H (2.6-8.5) % Eos % (Auto) 2.5 (0-4.4) % Baso % (Auto) 1.4 H (0.2-1.2) % Lymph # (Auto) 1.14 (0.9-3.2) K/mm3 Cuming # (Auto) 0.9 H (0.1-0.6) K/mm3 Eos # (Auto) 0.2 (0-0.3) K/mm3 Baso # (Auto) 0.1 (0.0-0.1) K/mm3 Abs Immat Gran (auto) 0.04 H (0.00-0.031) K/mm3 Absolute Neuts (auto) 4.8 (1.3-6.7) K/mm3 Absolute Nucleated RBC 0.000 (0.0-0.012) K/mm3 Nucleated RBC % 0.0 (0.0-0.2) % PT 15.5 H (11.1-14.7) Seconds INR 1.2 APTT 29.5 (22.3-36.8) Seconds Sodium 136 L (137-145) mmol/L Potassium 4.0 (3.4-5.0) mmol/L Chloride 104 (98-107) mmol/L Carbon Dioxide 21 L (22-30) mmol/L Anion Gap 11 (4-12) mmol/L BUN 11 (9-20) mg/dL Creatinine 0.85 (0.7-1.3) mg/dL Estim Creat Clear Calc 78 ml/min Estimated GFR > 60 (59 - ) Glucose 184 H (65-110) mg/dL Calcium 9.5 (8.4-10.2) mg/dL Total Bilirubin 2.4 H (0.2-1.3) mg/dL AST 60 H (17-59) U/L ALT 21 (6-50) U/L Alkaline Phosphatase 147 H (38-126) U/L Troponin I < 0.012 (0.000-0.034) ng/mL Total Protein 8.1 (6.3-8.2) g/dL Albumin 3.8 (3.5-5.1) g/dL <Latonya Peres PA-C - Last Filed: 11/19/24 04:07> Lab Results 11/17/24 Range/Units 19:48 WBC 7.2 (4.5-10.0) K/mm3 RBC 3.56 L (4.6-6.20) M/mm3 Hgb 10.4 L (14.0-18.0) g/dL Hct 32.7 L (42.0-52.0) % MCV 91.9 (80-100) fl MCH 29.2 (26-34) pg MCHC 31.8 L (32-36) g/dl RDW 16.1 H (11.5-14.5) % Plt Count 199 (150-375) k/mm3 MPV 9.7 (7.4-10.4) fl Immature Gran % (Auto) 0.6 H (0-0.5) % Neut % (Auto) 67.4 (45.5-73.1) % Lymph % (Auto) 15.9 L (18.3-44.2) % Cuming % (Auto) 12.2 H (2.6-8.5) % Eos % (Auto) 2.5 (0-4.4) % Baso % (Auto) 1.4 H (0.2-1.2) % Lymph # (Auto) 1.14 (0.9-3.2) K/mm3 Cuming # (Auto) 0.9 H (0.1-0.6) K/mm3 Eos # (Auto) 0.2 (0-0.3) K/mm3 Baso # (Auto) 0.1 (0.0-0.1) K/mm3 Abs Immat Gran (auto) 0.04 H (0.00-0.031) K/mm3 Absolute Neuts (auto) 4.8 (1.3-6.7) K/mm3 Absolute Nucleated RBC 0.000 (0.0-0.012) K/mm3 Nucleated RBC % 0.0 (0.0-0.2) % PT 15.5 H (11.1-14.7) Seconds INR 1.2 APTT 29.5 (22.3-36.8) Seconds Sodium 136 L (137-145) mmol/L Potassium 4.0 (3.4-5.0) mmol/L Chloride 104 (98-107) mmol/L Carbon Dioxide 21 L (22-30) mmol/L Anion Gap 11 (4-12) mmol/L BUN 11 (9-20) mg/dL Creatinine 0.85 (0.7-1.3) mg/dL Estim Creat Clear Calc 78 ml/min Estimated GFR > 60 (59 - ) Glucose 184 H (65-110) mg/dL Calcium 9.5 (8.4-10.2) mg/dL Total Bilirubin 2.4 H (0.2-1.3) mg/dL AST 60 H (17-59) U/L ALT 21 (6-50) U/L Alkaline Phosphatase 147 H (38-126) U/L Troponin I < 0.012 (0.000-0.034) ng/mL Total Protein 8.1 (6.3-8.2) g/dL Albumin 3.8 (3.5-5.1) g/dL <Berto De La Vega MD - Last Filed: 11/17/24 22:00> Discharge Plan Discharge Clinical Impression: Acute subdural hematoma, Subarachnoid hemorrhage, Fracture of parietal bone <Latonya Peres PA-C - Last Filed: 11/19/24 04:07> Patient Disposition: Acute Care Hospital <Latonya Peres PA-C - Last Filed: 11/19/24 04:07> Condition: Guarded Prognosis <Latonya Peres PA-C - Last Filed: 11/19/24 04:07> Patient Language: Setswana <Latonya Peres PA-C - Last Filed: 11/19/24 04:07> Prescriptions: No Action fluticasone propionate 50 mcg/actuation spray,suspension 1 spray INTRANASAL DAILY (DME) Contour Next Test Strips Strip MISCELLANEOUS omeprazole 40 mg capsule,delayed release(DR/EC) aspirin 81 mg tablet,delayed release (DR/EC) (DME) lancets [Microlet Lancet] Misc MISCELLANEOUS montelukast 10 mg tablet furosemide 20 mg tablet metoprolol succinate 25 mg tablet extended release 24 hr PO spironolactone 50 mg tablet Farxiga 10 mg tablet <Latonya Peres PA-C - Last Filed: 11/19/24 04:07> Follow-up/Referrals: Yosef,SCOTT Hill [Primary Care Provider] - <Latonya Peres PA-C - Last Filed: 11/19/24 04:07>
[2024-11-17 19:56] LABS: Hematocrit 32.7 % (42.0-52.0); Hemoglobin 10.4 g/dL (14.0-18.0); Immature Granulocyte Percent A 0.6 % (0-0.5); Lymphocytes Absolute Auto 1.14 K/mm3 (0.9-3.2); Mean Corpuscular HGB Conc 31.8 g/dl (32-36); Mean Corpuscular Hemoglobin 29.2 pg (26-34); Mean Corpuscular Volume 91.9 fl (80-100); Nucleated Red Blood Cells Absolute Auto 0.000 K/mm3 (0.0-0.012); Nucleated Red Blood Cells Perc 0.0 % (0.0-0.2); Platelet Count Result 199 k/mm3 (150-375); Red Blood Count 3.56 M/mm3 (4.6-6.20); White Blood Count 7.2 K/mm3 (4.5-10.0)
[2024-11-17 20:06] LABS: Alanine Aminotransferase 21 U/L (6-50); Albumin Level 3.8 g/dL (3.5-5.1); Alkaline Phosphatase 147 U/L (38-126); Anion Gap 11 mmol/L (4-12); Aspartate Amino Transferase 60 U/L (17-59); Bilirubin,Total 2.4 mg/dL (0.2-1.3); Blood Urea Nitrogen 11 mg/dL (9-20); Calcium 9.5 mg/dL (8.4-10.2); Carbon Dioxide 21 mmol/L (22-30); Chloride 104 mmol/L (98-107); Estimated CRCL calculation 78 ml/min; Estimated Glomerular Filt Rate > 60; Glucose 184 mg/dL (65-110); Potassium 4.0 mmol/L (3.4-5.0); Sodium 136 mmol/L (137-145); Total Protein 8.1 g/dL (6.3-8.2)
[2024-11-17 20:08] LABS: INR 1.2; Prothrombin Time 15.5 Seconds (11.1-14.7)
[2024-11-17 20:09] LABS: Partial Thromboplastin Time 29.5 Seconds (22.3-36.8)
[2024-11-17] MEDS: cefTRIAXone 2 GM in SODIUM CHLORIDE 0.9% IV 100 ML 200 ML IVPB (20:11)
[2024-11-17] MEDS: MORPHINE SULFATE (*CRX) 2 MG/ML INJ IV PUSH (20:12)
[2024-11-17 20:18] LABS: Troponin I < 0.012 ng/mL (0.000-0.034)
== END 2024-11-17 20:17 | disposition short-term general hospital (02) ==
LOC: ANHED 20:15
PROVIDERS: Emergency Provider Physician Assistant; PCP Physician Assistant
DX: S06.5XAA Traumatic subdural hemorrhage with loss of consciousness status unknown, initial encounter (principal); S06.6XAA Traumatic subarachnoid hemorrhage with loss of consciousness status unknown, initial encounter; S02.0XXA Fracture of vault of skull, initial encounter for closed fracture; I11.0 Hypertensive heart disease with heart failure; I50.9 Heart failure, unspecified; E11.9 Type 2 diabetes mellitus without complications; Z79.82 Long term (current) use of aspirin; W19.XXXA Unspecified fall, initial encounter
CPT/HCPCS: 36415; 70450; 71045; 72125; 80053; 84484; 85025; 85610; 85730; 96365; 96375; 99285; J0696; J2270

== ENCOUNTER 2025-01-27 15:07 | Outpatient (CLI) | payer MEDICARE, SELFPAY ==
--- NOTE | ~2025-01-27 | XR_ITS ---
EXAMINATION: XR hip LT min 2V, 01/27/2025 15:18 CDT HISTORY: Lumbago with sciatica, left and right side COMPARISON: No comparisons available. Findings: No acute fracture or malalignment. Severe degenerative changes with deformity of the femoral head consistent with avascular necrosis Soft tissues unremarkable. Impression: No acute fracture or malalignment. Reviewed, dictated and finalized at location P. Impression: No acute fracture or malalignment.
--- NOTE | ~2025-01-27 | XR_ITS ---
XR lumbar spine 2-3V Indication: Lumbago with sciatica, left and right side Comparison: None Findings: The vertebral heights are intact. No fracture or subluxation. Moderate loss of disc at L3-4, L4-5 and L5-S1 Soft tissues unremarkable Impression: No acute abnormality. Reviewed, dictated and finalized at location P. Impression: No acute abnormality.
== END 2025-01-27 15:08 | disposition home or self-care (01) ==
LOC: MICIMG 15:13
PROVIDERS: PCP Physician Assistant; Visit Provider Physician Assistant
DX: M54.42 Lumbago with sciatica, left side (principal); M54.41 Lumbago with sciatica, right side; M25.552 Pain in left hip; G89.29 Other chronic pain
CPT/HCPCS: 72100; 73502

== ENCOUNTER 2025-03-04 10:15 | Outpatient (CLI) | payer MEDICARE, SELFPAY ==
--- NOTE | ~2025-03-04 | US_ITS ---
ULTRASOUND ABDOMEN LIMITED (RIGHT UPPER QUADRANT) Clinical History: Alcoholic cirrhosis Comparison: Ultrasound 06/17/2018 Technique: Right upper quadrant sonography Findings: Liver: Nodular contour. Normal size. Echogenic. No intrahepatic biliary ductal dilatation. Normal hepatopedal flow main portal vein. No discrete hepatic mass noted. Common Duct: Normal caliber. 4 mm. Gallbladder: Stones. No wall thickening. No pericholecystic fluid. Pancreas: Obscured by bowel gas. Ascites. IMPRESSION: 1. Cirrhosis. No discrete hepatic mass identified. 2. Ascites. Reviewed, dictated and finalized at location R. 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
== END 2025-03-04 10:16 | disposition home or self-care (01) ==
LOC: MICIMG 10:15
PROVIDERS: PCP Physician Assistant; Visit Provider Internal Medicine Gastroenterology
DX: K70.30 Alcoholic cirrhosis of liver without ascites (principal); R14.0 Abdominal distension (gaseous)
CPT/HCPCS: 76705